=== PATIENT | female | born 1990 | race African-American/Black ===

== ENCOUNTER 2017-03-23 15:07 | Emergency (ER) | payer OTHER ==
[~2017-03-23 15:07] MED LIST: FLEXERIL10 M1 PO; IBUPROFEN600 MG PO; MOTRIN20 MG/ML PO
== END 2017-03-23 16:00 | disposition home or self-care (01) ==
LOC: CED 15:07 → CFTX 15:07
DX: H66.001 Acute suppurative otitis media without spontaneous rupture of ear drum, right ear (principal); Z86.14 Personal history of Methicillin resistant Staphylococcus aureus infection; F17.210 Nicotine dependence, cigarettes, uncomplicated; Z88.0 Allergy status to penicillin
CPT/HCPCS: 99282